=== PATIENT | female | born 1970 | race Caucasian/White ===

== ENCOUNTER → 2022-08-16 13:07 | Outpatient (BNVA) | payer OTHER, MEDICAID, SELFPAY | PROVIDERS: PCP Internal Medicine; Referring Provider Internal Medicine; Visit Provider Physician Assistant Surgical ==

== ENCOUNTER 2022-09-20 08:55 | Outpatient (AMB) | payer OTHER, MEDICAID, SELFPAY ==
--- NOTE | 2022-09-20 09:08 | MHC.OFFVISWM ---
Intake VS Expanded 09/20/22 09:09 Height 5 ft 4 in Weight 217 lb 9.6 oz BMI 37.3 BP 140/64 H Blood Pressure Location Lt brachial Blood Pressure Position Sitting Pulse 81 Pulse Source Pulse Oximeter Temp 97.0 F Temperature Source Temporal Artery Scan Pulse Oximetry 98 Oxygen Delivery Method Room Air Body Fat 84.2 Body Fat Percentage 38.7 Free Fat Mass 133.4 Muscle Mass 126.6 Visceral Mass 11.0 Water Mass 94.8 BMR 1,825 Intake Visit Reasons: (OV) [facility] SWL BMI 37.8 Heading Pinner Required: Yes Heading Pinner Name: office cmi Allergies No Known Allergies Allergy (Verified 09/20/22 09:09) Medication List - Last Reconciled 09/20/22 by LENNY Mullen aspirin 81 mg PO DAILY atorvastatin 20 mg PO DAILY dulaglutide (Trulicity) 0.75 mg subcut QWEEK empagliflozin (Jardiance) 25 mg PO DAILY fluticasone propionate 50 mcg/actuation 2 sprays intranasal DAILY insulin lispro protamin-lispro 100 unit/mL (75-25) (Humalog Mix 75-25 KwikPen) 50 units subcut BID lisinopril 20 mg PO DAILY loratadine (Allergy Relief (loratadine)) 10 mg PO DAILY metformin 1,000 mg PO BID paroxetine HCl 40 mg PO DAILY HPI HPI Comments History of Present Illness Details Pt is here to start [place] [facility] [place] [facility]. Her goal is to lose weight and achieve a healthy lifestyle as well as to improve, if not resolve, obesity related medical conditions, including HTN, DM, HLD. She reports first being concerned about her weight 2 years ago, highest weight to date was 226. Initial weight on presentation to [facility] [place] on 08/16/22 was 220 pounds with a BMI of 37.8. Current weight is 217.6 with a BMI of 37.4. She has tried multiple methods of weight loss including fad diets without permanent results. She lives with her family. She currently does not work. BS running 90-220. BP 130s/70s She wakes at:?5 am, and goes to bed at?10 pm. Dinner is at 5 pm. Breakfast: cereal corn flakes w 2 % milk or crackers, HB eggs AM snack: skip Lunch: skip PM snack: skip Dinner: chicken, rice, potato, veg After dinner: skip Other snacks: ice cream Liquids: 80 oz water, 20 oz coke soda daily, 12 oz apple juice Alcohol/marijuana/tobacco intake: none Exercise: none, could join a gym. GERD score: 6 XIANG score: 1 ESS score: 3 QOL score: 29 PFSH Surgical History Hx of cholecystectomy Hx of exploratory laparotomy Family History Mother Hypertension Arthritis Father Cirrhosis Social History Alcohol intake: current Alcohol intake frequency: does not drink Patient Tobacco Use Status: Never used Tobacco Review of Systems Const All systems reviewed & are unremarkable except as noted in HPI and below Physical Exam Vital Signs: Last Vital Signs Temp 97.0 F 09/20/22 09:09 Pulse 81 09/20/22 09:09 BP 140/64 H 09/20/22 09:09 Pulse Ox 98 09/20/22 09:09 Oxygen Delivery Method Room Air 09/20/22 09:09 BMI result Body Mass Index 37.3 Const General: cooperative, healthy appearing and no acute distress Orientation/consciousness: patient oriented x3 HEENT Head: Yes normal to inspection Ears: hearing grossly normal bilaterally General nose exam: Normal external nose present Face and sinus: Yes normal facial exam Eyes General: appearance normal, both eyes and all related structures Resp Effort & Inspection: normal respiratory effort Auscultation: clear to auscultation bilaterally Cardio Rate: regular rate Rhythm: regular rhythm Heart sounds: S1 normal heart sound present and S2 normal heart sound present GI Inspection: Yes normal to inspection, No distended and Yes obesity Palpation (GI): Soft to palpation, nontender and no guarding Auscultation: normal bowel sounds Skin General skin exam: no rashes or lesions noted Neuro General: patient oriented x3 Extrem General: No edema Psych Appearance: grossly normal Mental Status: mental status grossly normal Speech and movement: Normal speech and movement present Affect: normal affect Attitude: cooperative Assessment & Plan Assessment & Plan (1) Obesity (BMI 30-39.9): Code(s): E66.9 - Obesity, unspecified Plan: This is a?51 yo female who will start our SWL program to prepare for bariatric surgery.? Blood work, h pylori , CXR, ECG, Abd US and UGI have been ordered. She is being scheduled for RD and BH initial consultations. She will start SWL classes and watch the first three videos before her next appointment. ? Adequate sleep of 7-8 hours per night discussed, awakenign at 5 am and going to bed at 10 pm ? Purchase body composition analyzer scale (Aida velasquez or Min recommended) and check weight weekly. The best time to do this is first thing in the morning after going to the bathroom. 1. Nutritional counseling: Be sure to careful read the number of scoops per shake Start with 2 Premier Protein shakes ([employer], [employer], [employer]) First shake (1 scoop in 8 oz low fat unsweetened almond milk) at 6am-8am, Second shake (1/2 scoop in 8 oz unsweetened almond milk) at 10am-12pm 1 protein bar (Fulfil bars at [employer], [employer], or [employer]) at 2pm-4pm. Dinner at 5pm (8 forks of protein and 8 forks of salad/vegetables). Meal to include lean meat (beef, fish, pork, turkey, chicken), cooked vegetables or a salad with olive oil and/or fruits (berries, pears, apples, kiwi). Avoid salt, breads, potatoes, rice, pasta, desserts. [place] yogurt w fresh berries (strawberries, blueberries, raspberries, blackberries) at 7pm-8pm. Or a piece of fruit at this time such as an apple, pear, kiwi. Try to drink 64 oz of water daily and avoid soda and juices. ?2. Each shake would be drunk slowly, like coffee in a period of 2 hours. ?3. Cut each bar in 4 pieces and eat each piece in 30 min ?to make each bar last 2 hours. ?4. I emphasized the importance of measuring accurately the food portion and measure it carefully when serving the food on the plate ?5. The meal portions include 8 full-size forks of meat and 8 full-size forks of salad. You always eat the meat portion but you can replace up to half of the forks of salad/vegetables with rice, potatoes or pasta, or a fruit ?if you like. The less you do it the better weight loss will be. ?6. One full-size fork is what can be scooped on the fork without falling aside and not what can be bit with the fork. Use regular forks like those you find in a typical restaurant. ?7.? Please send me weight measurements as soon as possible and then once a week. Always include your diet and exercise plan. Alternatively come weekly at the office for weight checks and send me the measurements. ?8. Exercise counseling: Begin by watching a stretching for beginners video. Start slowly and begin to stretch your muscles. You should do this before and after each exercise session to prevent injury. Please join [employer] [facility] gym near your home. Ask the furniture manager or one of the trainers how to use the machines if you are unfamiliar with them. Start elliptical with a resistance of 2. Increase resistance by 1 every 3 min to your most comfortable resistance with a max resistance of 8. Reduce the resistance by 1 every 3 minutes back down to 2 and repeat cycles for 300 calories. Alternatively, start treadmill with a speed of 3.0 and incline of 0, increasing incline by 1 every 3 minutes to the highest comfortable level (max 6 for now) then decrease in the same fashion. Repeat process to a goal of 300 calories. Goal of 2000 calories burned or more weekly. You may also consider use of the stationary bike. The easiest would be to chose the fat-burn or interval training program on the machine and do this until you reach the 300 calorie goal. Alternatively, you can manually adjust the resistance in a similar fashion as mentioned above, (resistance of 2-8 with a goal speed of 12 mph). Tracking calories is essential. 9. Alternatively start walking outside daily, tracking calories with a goal of 300 calories per day, daily. You can download the [employer] which can track your time, distance and calories while walking outside. You press start in the angelo when you start and then stop when you are finished. 10.? It is important to communicate weekly with your weight and if you are having any problems with the plans. 11. Please get labs, EKG and chest X-Ray within 1 week. 12. Discussed and answered all questions regarding?obtained consent to participate in the [facility]?Registry. 13. Please follow the diet plan exactly, without any change. If you do not like something about the plan or you feel hungry, you need to communicate with me so I can help you revise the plan. You should not change the plan yourself. Text me at [phone] 14. Goal is to lose at least 12 pounds in the first month 15. Goal is to lose 10% of your weight before surgery, which is about 22 lbs. Ultimate weight goal: 200 lbs before surgery Patient is morbidly obese and is not considered stable at this time.?I spent a total of 70 minutes reviewing/updating records, examining the patient and counseling the patient on weight management as detailed above. Orders: Orders Vitamin B12 and Folate Today E11.9 - Type 2 diabetes mellitus without complications, E66.9 - Obesity, unspecified, E78.00 - Pure hypercholesterolemia, unspecified, I10 - Essential (primary) hypertension Comprehensive Met. Panel Today E11.9 - Type 2 diabetes mellitus without complications, E66.9 - Obesity, unspecified, E78.00 - Pure hypercholesterolemia, unspecified, I10 - Essential (primary) hypertension C Reactive Protein Today E11.9 - Type 2 diabetes mellitus without complications, E66.9 - Obesity, unspecified, E78.00 - Pure hypercholesterolemia, unspecified, I10 - Essential (primary) hypertension Ferritin Today E11.9 - Type 2 diabetes mellitus without complications, E66.9 - Obesity, unspecified, E78.00 - Pure hypercholesterolemia, unspecified, I10 - Essential (primary) hypertension Hemoglobin A1c Today E11.9 - Type 2 diabetes mellitus without complications, E66.9 - Obesity, unspecified, E78.00 - Pure hypercholesterolemia, unspecified, I10 - Essential (primary) hypertension Insulin Today E11.9 - Type 2 diabetes mellitus without complications, E66.9 - Obesity, unspecified, E78.00 - Pure hypercholesterolemia, unspecified, I10 - Essential (primary) hypertension IRON PROFILE Today E11.9 - Type 2 diabetes mellitus without complications, E66.9 - Obesity, unspecified, E78.00 - Pure hypercholesterolemia, unspecified, I10 - Essential (primary) hypertension Lipid Panel Today E11.9 - Type 2 diabetes mellitus without complications, E66.9 - Obesity, unspecified, E78.00 - Pure hypercholesterolemia, unspecified, I10 - Essential (primary) hypertension PTHI Today E11.9 - Type 2 diabetes mellitus without complications, E66.9 - Obesity, unspecified, E78.00 - Pure hypercholesterolemia, unspecified, I10 - Essential (primary) hypertension TSH reflex Free T4 Today E11.9 - Type 2 diabetes mellitus without complications, E66.9 - Obesity, unspecified, E78.00 - Pure hypercholesterolemia, unspecified, I10 - Essential (primary) hypertension Vitamin A Today E11.9 - Type 2 diabetes mellitus without complications, E66.9 - Obesity, unspecified, E78.00 - Pure hypercholesterolemia, unspecified, I10 - Essential (primary) hypertension Vitamin B1 Today E11.9 - Type 2 diabetes mellitus without complications, E66.9 - Obesity, unspecified, E78.00 - Pure hypercholesterolemia, unspecified, I10 - Essential (primary) hypertension Vitamin D 25-OH Total Today E11.9 - Type 2 diabetes mellitus without complications, E66.9 - Obesity, unspecified, E78.00 - Pure hypercholesterolemia, unspecified, I10 - Essential (primary) hypertension Zinc Today E11.9 - Type 2 diabetes mellitus without complications, E66.9 - Obesity, unspecified, E78.00 - Pure hypercholesterolemia, unspecified, I10 - Essential (primary) hypertension ECG 12 lead EKG Today E11.9 - Type 2 diabetes mellitus without complications, E66.9 - Obesity, unspecified, E78.00 - Pure hypercholesterolemia, unspecified, I10 - Essential (primary) hypertension FL upper GI w air Today E11.9 - Type 2 diabetes mellitus without complications, E66.9 - Obesity, unspecified, E78.00 - Pure hypercholesterolemia, unspecified, I10 - Essential (primary) hypertension Complete Blood Count Auto Diff Today E11.9 - Type 2 diabetes mellitus without complications, E66.9 - Obesity, unspecified, E78.00 - Pure hypercholesterolemia, unspecified, I10 - Essential (primary) hypertension H Pylori Breath Test Today E11.9 - Type 2 diabetes mellitus without complications, E66.9 - Obesity, unspecified, E78.00 - Pure hypercholesterolemia, unspecified, I10 - Essential (primary) hypertension US abdomen comp w elastography Today E11.9 - Type 2 diabetes mellitus without complications, E66.9 - Obesity, unspecified, E78.00 - Pure hypercholesterolemia, unspecified, I10 - Essential (primary) hypertension XR chest 2V Today E11.9 - Type 2 diabetes mellitus without complications, E66.9 - Obesity, unspecified, E78.00 - Pure hypercholesterolemia, unspecified, I10 - Essential (primary) hypertension Referrals Behavioral Health Referral E11.9 - Type 2 diabetes mellitus without complications, E66.9 - Obesity, unspecified, E78.00 - Pure hypercholesterolemia, unspecified, I10 - Essential (primary) hypertension Nutrition/Dietitian Referral E11.9 - Type 2 diabetes mellitus without complications, E66.9 - Obesity, unspecified, E78.00 - Pure hypercholesterolemia, unspecified, I10 - Essential (primary) hypertension Coding Level of Care Code New Pt Level 5 (55558) Diagnoses Obesity (BMI 30-39.9) E66.9 Time Spent (min) 70
[2022-09-20 09:09] VITALS: BP 140/64; PULSE 81; TEMP 36.1; O2SAT 98; BMI 37.3
== END 2022-09-20 09:59 | disposition home or self-care (01) ==
PROVIDERS: PCP Internal Medicine; Visit Provider Physician Assistant Surgical
DX: E66.9 Obesity, unspecified (principal); Z68.37 Body mass index [BMI] 37.0-37.9, adult
CPT/HCPCS: 99205

== ENCOUNTER → 2022-09-20 08:55 | Outpatient (BNVA) | payer OTHER, MEDICAID, SELFPAY | PROVIDERS: PCP Internal Medicine; Visit Provider Physician Assistant Surgical ==

== ENCOUNTER 2022-09-30 07:09 | Outpatient (REF) | payer MEDICARE, SELFPAY ==
--- NOTE | ~2022-09-30 | XR_ITS ---
EXAMINATION: XR CHEST CLINICAL INFORMATION: Obesity. COMPARISON: None available. TECHNIQUE: 2 views of the chest were obtained. FINDINGS: The lungs are well expanded. No focal consolidation. No pleural effusion. Cardiac silhouette is within normal limits. There is possible deformity of the lateral right seventh rib. XR/XR chest 2V IMPRESSION: No acute abnormality.
--- NOTE | 2022-09-30 07:19 | ECG_ITS ---
Test Reason : E66.9 Blood Pressure : / mmHG Vent. Rate : 070 BPM Atrial Rate : 070 BPM P-R Int : 152 ms QRS Dur : 126 ms QT Int : 444 ms P-R-T Axes : 044 -43 021 degrees QTc Int : 479 ms Normal sinus rhythm Left axis deviation Right bundle branch block Abnormal ECG No previous ECGs available Referred By: Bradford Kearney Electronically Signed By:Antelmo Dorman
[2022-09-30 08:48] LABS: Basophils Percent Auto 0.5 % (0-2); Eosinophils Absolute Auto 0.3 X10*3/uL (0.0-0.4); Eosinophils Percent Auto 4.5 % (0-4); Hemoglobin 13.4 g/dl (12.0-16.0); Imm Gran Abs Auto 0.03 X10*3/uL (0.00-0.03); Imm Gran Pct Auto 0.5 % (0.0-0.4); Lymphocytes Percent Auto 36.6 % (20-40); MANUAL DIFF FLAG NO; Mean Corpuscular HGB Conc 33.5 g/dl (31.0-35.0); Mean Corpuscular Hemoglobin 29.7 pg (27.0-33.0); Mean Corpuscular Volume 88.7 fL (80.0-98.0); Mean Platelet Volume 10.9 fL (9.4-12.3); Monocytes Absolute Auto 0.4 X10*3/uL (0.1-1.2); Monocytes Percent Auto 6.8 % (2-11); Neutrophils Absolute Auto 2.8 x10*3/uL (2.0-8.3); Neutrophils Percent Auto 51.1 % (45-73); Platelet Count 278 X10*3/uL (160-400); Red Blood Count 4.51 X10*6/uL (4.20-5.50); Red Cell Distribution Width 12.3 % (11.0-16.0); White Blood Count 5.6 X10*3/uL (4.8-10.8)
[2022-09-30 08:57] LABS: Estimated Average Glucose 243 mg/dL; Hemoglobin A1c % 10.1 %
[2022-09-30 09:35] LABS: Alanine Aminotransferase 40 U/L (0-31); Albumin Level 4.9 g/dL (3.5-5.0); Alkaline Phosphatase 64 U/L (39-117); Anion Gap 17 (12-20); Aspartate Amino Transferase 37 U/L (5-31); Bilirubin Total 0.6 mg/dL (0.0-1.0); Blood Urea Nitrogen 23 mg/dL (9-16); C Reactive Protein 0.29 mg/dL (< or = 0.50); Calcium 10.2 mg/dL (8.4-10.2); Carbon Dioxide 26 mmol/L (22-29); Chloride 99 mmol/L (96-108); Cholesterol 132 mg/dL; Estimated Glomerular Filt Rate > 60; Glucose Random 163 mg/dL (60-115); HDL Cholesterol 37 mg/dL; Iron 68 mcg/dL (30-160); LDL Cholesterol Calculated 48 mg/dl; Percent Iron Saturation 17 % (15-50); Potassium 3.8 mmol/L (3.3-5.1); Sodium 138 mmol/L (135-145); Total Iron Binding Capacity 393 mcg/dL (228-428); Total Protein 7.9 g/dL (6.5-8.0); Triglycerides 238 mg/dL; Unsaturated Iron Binding 325 ug/dL
[2022-09-30 09:58] LABS: Ferritin 38 ng/mL (10-250); Folate 14.6 ng/mL (> or = 4.0); Insulin 31 uU/mL (2-29); Vitamin B12 430 pg/mL (200-900); Vitamin D 25-OH Total 30.4 ng/mL (>30)
[2022-10-03 14:58] LABS: PTHI 33 pg/mL (16-77)
[2022-10-05 02:33] LABS: Zinc 93 mcg/dL (60-130)
[2022-10-06 03:28] LABS: Vitamin A 80 mcg/dL (38-98)
[2022-10-06 14:54] LABS: Vitamin B1 8 nmol/L (8-30)
== END 2022-09-30 07:10 | disposition home or self-care (01) ==
LOC: HO.XRAY 07:09
PROVIDERS: PCP Internal Medicine; Visit Provider Physician Assistant Surgical
DX: E11.9 Type 2 diabetes mellitus without complications (principal); E66.9 Obesity, unspecified; E78.00 Pure hypercholesterolemia, unspecified; I10 Essential (primary) hypertension
CPT/HCPCS: 36415; 71046; 80053; 80061; 82306; 82607; 82728; 82746; 83036; 83525; 83540; 83970; 84425; 84443; 84590; 84630; 85025; 86140; 93005

== ENCOUNTER → 2022-09-30 07:19 | Outpatient (BNV) | payer MEDICARE, SELFPAY | PROVIDERS: PCP Internal Medicine; Visit Provider Internal Medicine Cardiovascular Disease | DX: I45.10 Unspecified right bundle-branch block (principal); R94.31 Abnormal electrocardiogram [ECG] [EKG] | CPT/HCPCS: 93010 ==

== ENCOUNTER 2022-10-06 09:51 | Outpatient (REF) | payer OTHER, MEDICAID, SELFPAY ==
[2022-10-09 14:56] LABS: H Pylori Breath Test Negative (Negative)
== END 2022-10-06 09:52 | disposition home or self-care (01) ==
LOC: HO.LNP 09:51
PROVIDERS: PCP Internal Medicine; Visit Provider Physician Assistant Surgical
DX: E11.9 Type 2 diabetes mellitus without complications (principal); E66.9 Obesity, unspecified
CPT/HCPCS: 83013

== ENCOUNTER 2022-10-14 10:00 | Outpatient (AMB) | payer OTHER, MEDICAID, SELFPAY ==
--- NOTE | 2022-10-14 10:10 | A.OFFWM_ITS ---
Intake Intake Visit Reasons: VIDEO BH Intake Allergies No Known Allergies Allergy (Verified 10/19/22 09:23) PFSH Surgical History Hx of cholecystectomy Hx of exploratory laparotomy Family History Mother Hypertension Arthritis Father Cirrhosis Social History Alcohol intake: current Alcohol intake frequency: does not drink Patient Tobacco Use Status: Never used Tobacco Behavioral Health Assessment Weight Management Therapy Therapy Notes Details PT is a 52 year old , Luxembourger-Speaking Female, who presents for Behavioral Health assessment as part of surgical weight-loss program. PT reports she currently receives MH treatment on a regular basis due to Depression, anxiety and OCD. PT denies any past/recent concerns re: safety factors such as SI, self-harm and/or other harm. PHQ-9 scores were high however, per assessment and her statements she doesn't appear to be dealing with a current depressive episode. BES scores indicate minimal risk for Binge Eating behavior. However PT will be seen again due to alleged concerns with emotional eating. Presenting Concerns Referral Source WMP Provider. PT sees LENNY Andrade. Reason for referral Completion of behavioral health assessment as part of process for weight-loss surgery. Precipitating Event Obesity, HTN, Diabetes. Living Situation Current Living Situation Rent At risk of losing current housing? No Satisfied with current living situation? Yes Comments PT lives with her 25 year old niece and 20 year old nephew. Food/Weight/Diet Expectations of change The initial goal is to lose at least 12 pounds in the first month Also, another goal is to lose 10% of your weight before surgery, which is about 22 lbs. Ultimate weight goal: 200 lbs. before surgery. PT wants to be at her healthy weight. One of her personal goals is not to have to take as much medication. History/Relationship with food -PT states she thinks her issue is relat ed to late snacking, as usually by the end of the day she used to eat ice cream or have snacks while watching tv. -Before starting the program she only weaver d 2 meals, had late breakfast around 10 am, and then dinner around 5 pm. Examples of past breakfast: ham/eggs with soda crackers or bread and coffee. Examples of past dinners: Rice, beans, protein (pork, fish, chicken), and green salad. sometimes she had multiple carbs in the same meal. She used to drink a lot of coffee or Coke. - During the pandemic she suffered from emotional eating due to isolation. History/Relationship with weight Around 1998 she was 226 lbs. Then she was able to lose 70 Lbs. with diet and medication with a doctor. She was able to be around 150-160 lbs. for a couple of years. Then around 2006, she started to gain weight but later in 2011 she lost 25 Lbs. due to health issues and family stress, after that she gained weight slowly but weight got out of control during the covid-19 pandemic in 2020. History/Relationship with dieting Weight management program around 2000 in [place], with medication and diet. She hasn't engaged in diets. Recently per CP advise she started WMP at this facility. Binge Eating Do you frequently eat large amounts of food in short periods of time, not feeling physically hungry? No Do you feel out of control when you eat a large amount of food in a short period of time? No Do you eat large amounts of food rapidly and typically alone? No Night Eating Do you wake up at least once during the night to eat? No If you wake up in the night, do you find that it is necessary to eat something in order to fall back asleep? No Do you have little or no appetite in the morning and feel very hungry in the evening, often overeating between dinner and when you go to bed? Yes Social History Family history and relationship Pt is Sigle. She was for about 4 years in the . PT has no kids. Mother in 2011, father in 2003. She has 3 siblings. They all are in [place] but have a very close relationship. 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 Developmental history and status None. Social support Niece and nephew. She's attending the gym with nephew. Community support Providers. Buddhist/Spirituality Pt is Yazdanism. Currently not attending rastafari around her as she hasn't find a local danish-chruch, but she continues attending services on Sundays via [employer] [facility]. Cultural/Ethnic information PT is from [place]. Moved to [place] 4 years ago. Pt is Luxembourger-speaking only. Legal Involvement and History Current or historical involvement with the legal system? 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 Preferred learning style Visual Currently enrolled in educational program? Yes (Romanian at [employer] Interested in further educational program? No Educational Interests/Skills After finishing ESL classes she would like to start a clothing business. 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 No Meaningful activities Cooking, reading the bible, watch movies, window shopping. Financial Situation Describe current financial situation Comfortable Financial assistance? Food [employer] and [employer]SI Service Service? No Mental Health and Addiction Treatment Current/Past substance abuse? No Current/Past addictive behavior concerns? No Psychiatric history PT attends counseling on a regular basis. Diagnosed with Major Depression, anxiety and OCD. Disabled in [place] due to Mental health and had to be out of work. Medical and Physical Health Summary Additional Medical History not covered in history None reported. Sexual History concerns None reported Physical exam in the last year? Yes Medications Is the patient compliant with medications? Yes Does the patient have Stringer Guardian in place? Not applicable Does the patient use complimentary health approaches? No Trauma/Abuse History History of trauma? No Questionnaires PHQ-9 Over the last 2 weeks, how often have you been bothered by any of the following problems? 1. Little interest or pleasure in doing things: several days 2. Feeling down, depressed, or hopeless: several days 3. Trouble falling or staying asleep, or sleeping too much: more than half the days 4. Feeling tired or having little energy: more than half the days 5. Poor appetite or overeating: several days 6. Feeling bad about yourself - or that you are a failure or have let yourself or your family down: not at all 7. Trouble concentrating on things, such as reading the newspaper or watching television: not at all 8. Moving or speaking so slowly that other people could have noticed. Or the opposite - being so fidgety or restless that you have been moving around a lot more than usual: more than half the days 9. Thoughts that you would be better off or of hurting yourself in some way: not at all Total score: 9 Depression Screening Interpretation: Positive (Mild Symptoms.) Depression Screening Follow-up: In treatment and Follow-up Visit Requested [id number] - PHQ-9 Billing: Yes Source: Developed by Drs. Sean Rodriguez, Eloise Moran, Ruddy Daly and colleagues, with an educational doreen from [employer]. Binge Eating Scale Group 1 A. I don't feel self-conscious about my wt. or body size when I'm with others. B. I feel concerned about how I look to others, but it normally does not make me fell disappointed with myself C. I do get self-conscious about my appearance and wt. which makes me feel disappointed in myself. D. I feel very self-conscious about my wt. and frequently I feel intense shame and disgust for myself. I try to avoid social contacts because of my self- consciousness. Response Group 1: B Group 2 A. I don't have any difficulty eating slowly in the proper manner. B. Although I seem to gobble down foods, I don't end up feeling stuffed because of eating to much. C. At times, I tend to eat quickly and then, I feel uncomfortably full afterwards. D. I have the habit of bolting down my food, without really chewing it. When this happens I usually feel uncomfortably stuffed because I've eaten to much. Response Group 2: A Group 3 A. I feel capable to control my eating urges when I want to. B. I feel like I have failed to control my eating more than the average person. C. I feel utterly helpless when it comes to feeling in control of my eating urges. D. Because I feel so helpless about controlling my eating I have become very desperate about trying to get control. Response Group 3: B Group 4 A. I don't have the habit of eating when I'm bored. B. I sometimes eat when I'm bored, but often I'm able to get busy and get my mind off food. C. I have a regular habit of eating when I'm bored, but occasionally, I can use some other activity to get my mind off eating. D. I have a strong habit of eating when I'm bored. Nothing seems to help me breath the habit. Response Group 4: C Group 5 A. I'm usually physically hungry when I eat something. B. Occasionally, I eat something on impulse even though I really am not hungry. C. I have the regular habit of eating foods, that I might not really enjoy, to satisfy a hungry feeling even though physically, I don't need the food. D. Although I'm not physically hungry, I get a hungry feeling in my mouth that only seems to be satisfied when I eat a food, like sandwich, that fills my mouth. Sometimes, when I eat the food to satisfy my mouth hunger, I then spit the food out so I won't gain weight. Response Group 5: A Group 6 A. I don't feel any guilt or self-hate after I overeat. B. After I overeat, occasionally I feel guilt or self-hate. C. Almost all the time I experience strong guilt or self-hate after I overeat. Response Group 6: B Group 7 A. I don't lose total control of my eating when dieting even after periods when I overeat. B. Sometimes when I eat a forbidden food on a diet, I feel like I blew it and eat even more. C. Frequently, I have the habit of saying to myself, I've blown it now, why not go all the way, when I overeat on a diet. When that happens I eat more. D. I have a regular habit of starting a strict diets for myself but I break the diets by going on an eating binge. My life seems to be either a feast or famine. Response Group 7: A Group 8 A. I rarely eat so much food that I feel uncomfortably stuffed afterwards. B. Usually about once a month, I each such a quantity of food, I end up feeling very stuffed. C. I have regular periods during the month when I eat large amounts of food, either at mealtime or at snacks. D. I eat so much food that I regularly feel quite uncomfortable after eating and sometimes a bit nauseous. Response Group 8: C Group 9 A. My level of calorie intake does not go up very high or go down very low on a regular basis. B. Sometimes after I overeat, I will try to reduce my caloric intake to almost nothing to compensate for the excess calories I've eaten. C. I have a regular habit of overeating during the night. It seems that my routine is not to be hungry in the morning but overeat in the evening. D. In my adult years, I have had week-long periods where I practically starve myself. This follows periods when I overeat. It seems I live a life of either feast or famine. Response Group 9: C Group 10 A. I usually am able to stop eating when I want to. I know when enough is enough. B. Every so often, I experience a compulsion to eat which I can't seem to control. C. Frequently, I experience strong urges to eat which I seem unable to control, but at other times I can control my eating urges. D. I feel incapable of controlling urges to eat. I have a fear of not being able to stop eating voluntarily. Response Group 10: C Group 11 A. I don't have any problem stopping eating when I feel full. B. I usually can stop eating when I feel full but occasionally overeat leaving me feeling uncomfortably stuffed. C. I have a problem stopping eating once I start and usually I feel uncomfortably stuffed after I eat a meal. D. Because I have a problem not being able to stop eating when I want, I sometimes have to induce vomiting to relieve my stuffed feeling. Response Group 11: A Group 12 A. I seem to eat just as much when I'm with others, Family social gatherings as when I'm by myself. B. Sometimes, when I'm with other persons, I don't eat as much as I want to eat because I'm self-conscious about my eating. C. Frequently, I eat only a small amount of food when others are present, because I'm very embarrassed about my eating. D. I feel so ashamed about overeating that I pick times to overeat when I know no one will see me. I feel like a closet eater. Response Group 12: C Group 13 A. I eat three meals a day with only an occasional between meal snack. B. I eat 3 meals a day, but I also normally snack between meals. C. When I am snacking heavily, I get in the habit of skipping regular meals. D. There are regular periods when I seem to be continually eating, with no planned meals. Response Group 13: C Group 14 A. I don't think much about trying to control unwanted eating urges. B. At least some of the time, I feel my thoughts are pre-occupied with trying to control my eating urges. C. I feel that frequently I spend much time thinking about how much I ate or about trying not to eat anymore. D. It seems to me that most of my waking hours are pre-occupied by thoughts about eating or not eating. I feel like I'm constantly struggling not to eat. Response Group 14: A Group 15 A. I don't think about food a great deal. B. I have strong craving for food but they last only for brief periods of time. C. I have days when I can't seem to think about anything else but food. D. Most of my days seem to be pre-occupied with thoughts about food. I feel like I live to eat. Response Group 15: B Group 16 A. I usually know whether or not I'm physically hungry. I take the right portion of food to satisfy me. B. Occasionally, I feel uncertain about knowing whether or not I'm physically hungry. A these times it's hard to know how much food I should take to satisfy me. C. Even though I might know how many calories I should eat, I don't have any idea what is a normal amount of food for me. Response Group 16: B Binge Eating Score: 17 Score less than 17 Minimal Risk Score between 18-26 Moderate Risk Score between 27-46 High Risk Assessment & Plan Assessment & Plan (1) Depression: Code(s): F32.A - Depression, unspecified Qualifiers: Depression Type: unspecified Qualified Code(s): F32.A - Depression, unspecified (2) Anxiety: Code(s): F41.9 - Anxiety disorder, unspecified Plan Not cleared today. PHQ-9 will be repeated next angelo. We will further explore emotional eating and patient will be provided with strategies to manage Sx that trigger emotional/stress eating. Will f/up in 4 weeks. Telehealth Telehealth Location of provider rendering services: practice address Location of patient: address on file Patient Identification confirmed using: Name, : Yes Telehealth method: video Patient verbally consented to treatment: Yes Patient verbally consented to billing insurance company: Yes Patient informed of any privacy concerns related to visit: Yes Minutes spent on Phone/Video with Pt.: 60 Coding Level of Care Code New Pt Tele Psy Diag Eval (58688) Patient Type New Diagnoses Depression, unspecified depression type F32.A Depression Type: unspecified Anxiety F41.9 Time Spent (min) 60
== END 2022-10-14 13:55 | disposition home or self-care (01) ==
LOC: HO.HBST 10:47
PROVIDERS: PCP Internal Medicine; Visit Provider Counselor Mental Health
DX: F32.A Depression, unspecified (principal); F41.9 Anxiety disorder, unspecified
CPT/HCPCS: 90791

== ENCOUNTER → 2022-10-14 10:00 | Outpatient (BNVA) | payer OTHER, MEDICAID, SELFPAY | PROVIDERS: PCP Internal Medicine; Visit Provider Counselor Mental Health ==

== ENCOUNTER 2022-10-19 09:17 | Outpatient (AMB) | payer OTHER, MEDICAID, SELFPAY ==
--- NOTE | 2022-10-19 09:20 | A.OFFVIS_ITS ---
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 Outside Required: Yes Display Designer Outside Name: office cmi Allergies No Known Allergies Allergy (Verified 10/19/22 09:23) Medication List - Last Reconciled 10/19/22 by LENNY Mullen aspirin 81 mg PO DAILY atorvastatin 20 mg PO DAILY cyanocobalamin (vitamin B-12) 250 mcg PO DAILY dulaglutide (Trulicity) 0.75 mg subcut QWEEK fluticasone propionate 50 mcg/actuation 2 sprays intranasal DAILY insulin lispro protamin-lispro 100 unit/mL (75-25) (Humalog Mix 75-25 KwikPen) 50 units subcut BID lisinopril 20 mg PO DAILY loratadine (Allergy Relief (loratadine)) 10 mg PO DAILY paroxetine HCl 40 mg PO DAILY HPI HPI Comments History of Present Illness Details The patient is a pleasant 51 year old female who returns to the clinic for pre-operative surgical weight loss management. They were last seen in the office on 09/20/22, recorded weight at that time was 217.6 pounds, with a BMI of 37.3. Today's weight is 207.8 pounds and BMI is 35.7. There has been a weight loss of 12.2 pounds since initiating the surgical weight loss program on 08/16/22 with a total body weight loss of 5.5 %. Pre op work up completed as follows: SWL classes:? BH appts: 10/14/22 ? ? RD appts: 10/25/22 Labs: 09/30/22-A1C:10.1, B12:430 H. pylori: 10/06/22-neg CXR: 09/30/22-nad EK09/30/22-Left axis deviation, RBBB. 10/03/22 stress test ordered ABD U/S: UGI: The patient reports BS running 69-148.She stopped Jardiance on her own due to increased urination and hypoglycemia. She also adjusted her insulin to 55 units in AM and 40 units in PM. She feels she gets overnight hypoglycemia with symptoms of goosebumps and shakiness with BS 69. Tolerating meal plan and reports some hunger between 4-5 pm. Current meal plan includes: 2 Premier Protein shakes First shake (1 scoop in 8 oz low fat unsweetened almond milk) at 6am-8am, Second shake (1/2 scoop in 8 oz unsweetened almond milk) at 10am-12pm 1 protein bar (Fulfil bars at [employer], [employer], or [employer]) at 2pm-4pm. Dinner at 5pm (8 forks of protein and 8 forks of salad/vegetables). Omani yogurt w fresh berries (strawberries, blueberries, raspberries, blackberries) at 7pm-8pm. Or a piece of fruit at this time such as an apple, pear, kiwi. Drinking 80-96 oz water Current exercise plan includes: treadmill 4 days per week 200 calories per session PFSH Surgical History Hx of cholecystectomy Hx of exploratory laparotomy Family History Mother Hypertension Arthritis Father Cirrhosis Social History Alcohol intake: current Alcohol intake frequency: does not drink Patient Tobacco Use Status: Never used Tobacco Physical Exam Const General: healthy appearing and no acute distress Resp Effort & Inspection: normal respiratory effort Auscultation: clear to auscultation bilaterally Cardio Rate: regular rate Rhythm: regular rhythm GI Auscultation: normal bowel sounds Extrem General: Yes normal to inspection Assessment & Plan Assessment & Plan (1) Obesity (BMI 30-39.9): Code(s): E66.9 - Obesity, unspecified Plan: change meal plan to exclude yogurt at night as she doesn't like it. 3 Premier Protein shakes First shake (1 scoop in 8 oz low fat unsweetened almond milk) at 6am-8am, Second shake (1/2 scoop in 8 oz unsweetened almond milk) at 10am-12pm 1 protein bar (Fulfil bars at [employer], [facility], or [employer]) at 2pm-4pm. Dinner at 5pm (8 forks of protein and 8 forks of salad/vegetables). 1/2 scoop in last [id number] Increase exercise to 300 calories and increase days to 5 (2) Diabetes: Code(s): E11.9 - Type 2 diabetes mellitus without complications Plan: stop metformin decrease insulin to 40 am and 20 pm check BS text me with results (3) Abnormal EKG: Code(s): R94.31 - Abnormal electrocardiogram [ECG] [EKG] Plan: Nuc stress test ordered Coding Level of Care Code Est Pt Level 4 (56901) Diagnoses Obesity (BMI 30-39.9) E66.9 Diabetes E11.9 Abnormal EKG R94.31 Time Spent (min) 40
[2022-10-19 09:26] VITALS: BP 125/60; PULSE 77; TEMP 36.1; O2SAT 96; BMI 35.7
== END 2022-10-19 09:58 | disposition home or self-care (01) ==
PROVIDERS: PCP Internal Medicine; Visit Provider Physician Assistant Surgical
DX: E66.9 Obesity, unspecified (principal); E11.9 Type 2 diabetes mellitus without complications; R94.31 Abnormal electrocardiogram [ECG] [EKG]
CPT/HCPCS: 99214

== ENCOUNTER → 2022-10-19 09:17 | Outpatient (BNVA) | payer OTHER, MEDICAID, SELFPAY | PROVIDERS: PCP Internal Medicine; Visit Provider Physician Assistant Surgical ==

== ENCOUNTER → 2022-10-25 09:31 | Outpatient (BNVA) | payer OTHER, MEDICAID, SELFPAY | PROVIDERS: PCP Internal Medicine; Visit Provider Dietitian, Registered | DX: Z01.818 Encounter for other preprocedural examination (principal); Z90.49 Acquired absence of other specified parts of digestive tract; Z71.3 Dietary counseling and surveillance | CPT/HCPCS: 97802 ==

== ENCOUNTER 2022-12-05 09:00 | Outpatient (AMB) | payer MEDICARE, SELFPAY ==
--- NOTE | 2022-12-05 09:37 | MHC.WMTHER ---
Intake Intake Visit Reasons: VIDEO F/U Allergies No Known Allergies Allergy (Verified 10/19/22 09:23) PFSH Surgical History Hx of cholecystectomy Hx of exploratory laparotomy Family History Mother Hypertension Arthritis Father Cirrhosis Social History Alcohol intake: current Alcohol intake frequency: does not drink Patient Tobacco Use Status: Never used Tobacco Behavioral Health Assessment Weight Management Therapy Therapy Notes Details PT is a 52 year old , French-Speaking Female, who presents for a follow up after having intake on 10/14/22. PT presents feeling confused and with mixed feelings about moving forward with bariatric surgery. INTERVENTIONS: Processed feelings, validated and normalized doubts and fears, answered all questions pt had. RESPONSE: PT was sentive but responded well to intervention. Seemed calmed by end of session and [facility] and to manage emotional challenges and anxiety triggered by weight-loss journey. Plan: F/up for support as part of surgucal weight loss program. Presenting Concerns Referral Source P Provider. PT sees LENNY Andrade. Reason for referral Completion of behavioral health assessment as part of process for weight-loss surgery. Precipitating Event Obesity, HTN, Diabetes. Living Situation Current Living Situation Rent At risk of losing current housing? No Satisfied with current living situation? Yes Comments PT lives with her 25 year old niece and 20 year old nephew. Food/Weight/Diet Expectations of change The initial goal is to lose at least 12 pounds in the first month Also, another goal is to lose 10% of your weight before surgery, which is about 22 lbs. Ultimate weight goal: 200 lbs. before surgery. PT wants to be at her healthy weight. One of her personal goals is not to have to take as much medication. History/Relationship with food -PT states she thinks her issue is related to late snacking, as usually by the end of the day she used to eat ice cream or have snacks while watching tv. -Before starting the program she only had 2 meals, had late breakfast around 10 am, and then dinner around 5 pm. Examples of past breakfast: ham/eggs with soda crackers or bread and coffee. Examples of past dinners: Rice, beans, protein (pork, fish, chicken), and green salad. sometimes she had multiple carbs in the same meal. She used to drink a lot of coffee or Coke. - During the pandemic she suffered from emotional eating due to isolation. History/Relationship with weight Around 1998 she was 226 lbs. Then she was able to lose 70 Lbs. with diet and medication with a doctor. She was able to be around 150-160 lbs. for a couple of years. Then around 2006, she started to gain weight but later in 2011 she lost 25 Lbs. due to health issues and family stress, after that she gained weight slowly but weight got out of control during the covid-19 pandemic in 2019. History/Relationship with dieting Weight management program around 2000 in [place], with medication and diet. She hasn't engaged in diets. Recently per CP advise she started WMP at this facility. Binge Eating Do you frequently eat large amounts of food in short periods of time, not feeling physically hungry? No Do you feel out of control when you eat a large amount of food in a short period of time? No Do you eat large amounts of food rapidly and typically alone? No Night Eating Do you wake up at least once during the night to eat? No If you wake up in the night, do you find that it is necessary to eat something in order to fall back asleep? No Do you have little or no appetite in the morning and feel very hungry in the evening, often overeating between dinner and when you go to bed? Yes Social History Family history and relationship Pt is Sig[place]. She was for about 4 years in the . PT has no kids. Mother in 2011, father in 2003. She has 3 siblings. They all are in [place] but have a very close relationship. 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 Developmental history and status None. Social support Niece and nephew. She's attending the gym with nephew. Community support Providers. Mandaeism/Spirituality Pt is Hinduism. Currently not attending mu-ism around her as she hasn't find a local sami-chruch, but she continues attending services on Sundays via [email or web address]. Cultural/Ethnic information PT is from [place]. Moved to [place] 4 years ago. Pt is French-speaking only. Legal Involvement and History Current or historical involvement with the legal system? None Education Highest grade completed 12th Grade, obtained HS. 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 Preferred learning style Visual Currently enrolled in educational program? Yes (Iranian at [employer].) Interested in further educational program? No Educational Interests/Skills After finishing ESL classes she would like to start a clothing business. 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 No Meaningful activities Cooking, reading the bible, watch movies, window shopping. Financial Situation Describe current financial situation Comfortable Financial assistance? Food [place] and [employer]SI Service Service? No Mental Health and Addiction Treatment Current/Past substance abuse? No Current/Past addictive behavior concerns? No Psychiatric history PT attends counseling on a regular basis. Diagnosed with Major Depression, anxiety and OCD. Disabled in [place] due to Mental health and had to be out of work. Medical and Physical Health Summary Additional Medical History not covered in history None reported. Sexual History concerns None reported Physical exam in the last year? Yes Medications Is the patient compliant with medications? Yes Does the patient have Stringer Guardian in place? Not applicable Does the patient use complimentary health approaches? No Trauma/Abuse History History of trauma? No Questionnaires PHQ-9 Over the last 2 weeks, how often have you been bothered by any of the following problems? 1. Little interest or pleasure in doing things: several days 2. Feeling down, depressed, or hopeless: several days 3. Trouble falling or staying asleep, or sleeping too much: not at all 4. Feeling tired or having little energy: not at all 5. Poor appetite or overeating: several days 6. Feeling bad about yourself - or that you are a failure or have let yourself or your family down: several days 7. Trouble concentrating on things, such as reading the newspaper or watching television: not at all 8. Moving or speaking so slowly that other people could have noticed. Or the opposite - being so fidgety or restless that you have been moving around a lot more than usual: several days 9. Thoughts that you would be better off or of hurting yourself in some way: not at all Total score: 5 Depression Screening Interpretation: Negative (Mild Symptoms.) 29057 - PHQ-9 Billing: Yes Source: Developed by Drs. Sean Rodriguez, Eloise Moran, Ruddy Daly and colleagues, with an educational doreen from [employer]. Assessment & Plan Assessment & Plan (1) Depression: Code(s): F32.A - Depression, unspecified Qualifiers: Depression Type: unspecified Qualified Code(s): F32.A - Depression, unspecified (2) Anxiety: Code(s): F41.9 - Anxiety disorder, unspecified Plan PT is clear since her mental functioning is not impaired and there ar josé miguel safety concerns at this time, however she will need support with emotional journey and managing of social stress triggered by weigh-loss journey. This provider continue meeting with patient and patient will be provided with strategies for emotional eating, anxiety management, assertiveness, and manage triggers such as dealing with other's negative comments. f/up in 4 weeks. Next angelo: 01/04 @1pm / Telehealth Coding Level of Care Code Established Pt Tele Psytx 45 mins ([id number]) Patient Type Established Diagnoses Depression, unspecified depression type F32.A Depression Type: unspecified Anxiety F41.9 Time Spent (min) 45
== END 2022-12-05 10:00 | disposition home or self-care (01) ==
LOC: HO.HBST 09:32
PROVIDERS: PCP Internal Medicine; Visit Provider Counselor Mental Health
DX: F32.A Depression, unspecified (principal); F41.9 Anxiety disorder, unspecified
CPT/HCPCS: 90834

== ENCOUNTER → 2022-12-05 09:00 | Outpatient (BNVA) | payer MEDICARE, SELFPAY | PROVIDERS: PCP Internal Medicine; Visit Provider Counselor Mental Health ==

== ENCOUNTER → 2022-12-09 09:37 | Outpatient (REF) | payer MEDICARE, SELFPAY ==
--- NOTE | ~2022-12-09 | NM_ITS ---
Myocardial perfusion study Indication: Abnormal EKG to evaluate for myocardial ischemia Technique: The patient was brought in for a Lexiscan perfusion study on 12/09/2022. Patient performed low-level exercise and was injected 0.4 mg of Lexiscan intravenously. Within a minute of injection, 30 mCi of sestamibi was given intravenously. Images were obtained using the SPECT gamma camera interlaced with the gating device. Images were obtained in supine position. Resting perfusion study was performed on 12/13/2022. Patient was administered 30 mCi of sestamibi intravenously at rest. Images were then obtained in supine position. Images obtained with and without CT attenuation. Total DLP 109 mGy-cm. Images were processed with the software and compared side to side in short axis, horizontal long axis and vertical long axis views. Findings: The stress perfusion study showed non attenuated images show normal uptake of radiotracer in all segments of LV myocardium. Attenuation corrected images show mildly reduced uptake in the apex of the LV myocardium.. The gated study shows normal LV systolic function with calculated LVEF of 74%. LV cavity is normal size. The gated study shows normal systolic wall thickening and contraction of segments. Resting study shows no change in perfusion pattern compared to stress perfusion study. Gating at rest reveals normal systolic wall motion with ejection fraction at 73%. The findings are consistent with normal myocardial perfusion. NM/NM cardiolite stress test Impression: 1. Myocardial perfusion imaging study shows normal myocardial perfusion 2. Gated LVEF is 74% 3. Transient ischemic dilatation not present EKG is nondiagnostic for ischemia
--- NOTE | 2022-12-09 09:40 | CA_ITS ---
Acquisition Time: 2022-12-09 09:49:03 Total Exercise Time: 00:02:00 Test Indications: Abnormal ECG, PREOP Medications: Protocol: LEXISCAN Max HR: 105 BPM 63% of Pred: 166 BPM Max BP: 128/066 mmHG Max Work Load: 1.6 METS Pharmaoclgoical stress test with Lexiscan injection while walking slowly on the treadmill without anginal symptoms, without arrhythmias, with normotensive response to injection, with nondiagonstic EKGs. Nuclear images pending. Test reviewed with Dr. Reilly Referred By: Bradford Kearney Overread By: Priscilla Buckner
== END ==
LOC: HO.CARD 09:37
PROVIDERS: PCP Internal Medicine; Visit Provider Physician Assistant Surgical
DX: R94.31 Abnormal electrocardiogram [ECG] [EKG] (principal)
CPT/HCPCS: 78452; 93017; A9500; J0280; J2785

== ENCOUNTER → 2022-12-09 09:40 | Outpatient (BNV) | payer MEDICARE, SELFPAY | PROVIDERS: PCP Internal Medicine; Visit Provider Nurse Practitioner | DX: R94.31 Abnormal electrocardiogram [ECG] [EKG] (principal) | CPT/HCPCS: 78452; 93016; 93018 ==

== ENCOUNTER 2022-12-26 11:00 | Outpatient (AMB) | payer MEDICARE, SELFPAY ==
--- NOTE | 2022-12-26 11:09 | A.OFFWM_ITS ---
Intake Intake Visit Reasons: VIDEO BH F/U Allergies No Known Allergies Allergy (Verified 10/19/22 09:23) PFSH Surgical History Hx of cholecystectomy Hx of exploratory laparotomy Family History Mother Hypertension Arthritis Father Cirrhosis Social History Alcohol intake: current Alcohol intake frequency: does not drink Patient Tobacco Use Status: Never used Tobacco Behavioral Health Assessment Weight Management Therapy Therapy Notes Details Pt presents for a follow up. PT reports been better since our last meeting. States she started the meal plan but is not exercising. INTERVENTIONS: discussed functioning and progress with program expectations. Processed challenges/needs and explores strategies to continue her weight-loss commitment. Provided with community resources such as, local gyms, [employer] activities program ([facility] program near her) and other free web-based resources to access at home. Administered PHQ-9 again. Reminded angelo [facility]oming appointments. RESPONSE: Engaged and active in session. PLAN: Provider gave letter to patient for [facility] membership discount, she agreed to go this week. we will continue meeting on a monthly basis. Presenting Concerns Referral Source P Provider. PT sees LENNY Andrade. Reason for referral Completion of behavioral health assessment as part of process for weight-loss surgery. Precipitating Event Obesity, HTN, Diabetes. Binge Eating Do you frequently eat large amounts of food in short periods of time, not feeling physically hungry? No Do you feel out of control when you eat a large amount of food in a short period of time? No Do you eat large amounts of food rapidly and typically alone? No Night Eating Do you wake up at least once during the night to eat? No If you wake up in the night, do you find that it is necessary to eat something in order to fall back asleep? No Do you have little or no appetite in the morning and feel very hungry in the evening, often overeating between dinner and when you go to bed? No Medications Is the patient compliant with medications? Yes Does the patient have Stringer Guardian in place? Not applicable Does the patient use complimentary health approaches? No Questionnaires PHQ-9 Over the last 2 weeks, how often have you been bothered by any of the following problems? 1. Little interest or pleasure in doing things: not at all 2. Feeling down, depressed, or hopeless: not at all 3. Trouble falling or staying asleep, or sleeping too much: not at all 4. Feeling tired or having little energy: not at all 5. Poor appetite or overeating: not at all 6. Feeling bad about yourself - or that you are a failure or have let yourself or your family down: not at all 7. Trouble concentrating on things, such as reading the newspaper or watching television: not at all 8. Moving or speaking so slowly that other people could have noticed. Or the opposite - being so fidgety or restless that you have been moving around a lot more than usual: not at all 9. Thoughts that you would be better off or of hurting yourself in some way: not at all Total score: 0 Depression Screening Interpretation: Negative Depression Screening Done: Yes 42541 - PHQ-9 Billing: Yes Source: Developed by Drs. Sean Rodriguez, Eloise Moran, Ruddy Daly and colleagues, with an educational doreen from [employer]. Assessment & Plan Assessment & Plan (1) Depression: Code(s): F32.A - Depression, unspecified Qualifiers: Depression Type: unspecified Qualified Code(s): F32.A - Depression, unspecified (2) Anxiety: Code(s): F41.9 - Anxiety disorder, unspecified Plan PT Cleared. . F/up in 5 weeks. Next angelo: 01/30/23 @1pm / Telehealth Telehealth Telehealth Location of provider rendering services: other (Home office. [place], [place].) Location of patient: address on file Patient Identification confirmed using: Name, : Yes Telehealth method: video Patient verbally consented to treatment: Yes Patient verbally consented to billing insurance company: Yes Patient informed of any privacy concerns related to visit: Yes Minutes spent on Phone/Video with Pt.: 60 Coding Level of Care Code Established Pt Tele Psytx >53 mins ([id number]) Patient Type Established Diagnoses Depression, unspecified depression type F32.A Depression Type: unspecified Anxiety F41.9 Time Spent (min) 60
== END 2022-12-26 12:00 ==
LOC: HO.HBST 11:10
PROVIDERS: PCP Internal Medicine; Visit Provider Counselor Mental Health
DX: F32.A Depression, unspecified (principal); F41.9 Anxiety disorder, unspecified
CPT/HCPCS: 90837

== ENCOUNTER → 2022-12-26 11:00 | Outpatient (BNVA) | payer MEDICARE, SELFPAY | PROVIDERS: PCP Internal Medicine; Visit Provider Counselor Mental Health ==

== ENCOUNTER 2023-11-28 12:50 | Outpatient (AMB) | payer MEDICARE, SELFPAY ==
--- NOTE | 2023-11-28 12:55 | MHC.OFFVIS ---
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 Intake Note: New patient with ekg dx RBBB had ekg and stress last year patient states feeling good Mini Shifter Required: No Mini Shifter Services: Mini Shifter Offered & Declined Machine Operator Hop Picker: Machine Operator Hop Picker Present Accompanied by: niece Allergies No Known Allergies Allergy (Verified 10/19/22 09:23) Medication List - Last Reconciled 11/28/23 by Paresh Reilly MD aspirin 81 mg PO DAILY atorvastatin 20 mg PO DAILY cyanocobalamin (vitamin B-12) 250 mcg PO DAILY dulaglutide (Trulicity) 0.75 mg subcut QWEEK fluticasone propionate 50 mcg/actuation 2 sprays intranasal DAILY insulin lispro protamin-lispro 100 unit/mL (75-25) (Humalog Mix 75-25 KwikPen) 50 units subcut BID lisinopril 20 mg PO DAILY loratadine (Allergy Relief (loratadine)) 10 mg PO DAILY paroxetine HCl 40 mg PO DAILY HPI Comments Details: Sharon was referred here for abnormal EKG, right bundle-branch block. His EKG was noted to be abnormal last September. Subsequently she underwent a vasodilating myocardial perfusion imaging which showed no evidence of myocardial ischemia. She has multiple risk factors for obstructive coronary artery disease including hypertension, hyperlipidemia, diabetes, obesity. 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 Whether job she has no cardiac symptoms. Denies any exertional chest pain or shortness of breath. Denies any heart failure symptoms. Denies any lightheadedness, syncope. Denies any prolonged palpitations. Her last LDL was well optimized in the upper 40s. She said diabetes is also well control with hemoglobin A1c of 7%. Blood pressure is well optimized. She takes all her medications regularly. [facility] Surgical History Hx of exploratory laparotomy Hx of cholecystectomy Family History Mother Hypertension Arthritis Father Cirrhosis Social History Alcohol intake: current Alcohol intake frequency: does not drink Patient Tobacco Use Status: Never used Tobacco Review of Systems Const Denies chills, Denies daytime sleepiness, Denies fatigue, Denies fever(s), Denies frequent falls, Denies poor appetite, Denies snoring, Denies stops breathing during sleep, Denies weakness, Denies weight gain and Denies weight loss Eyes Denies loss of vision ENT Denies dizziness and Denies hearing loss Card Denies chest pain, Denies claudication, Denies leg edema, Denies lightheadedness, Denies palpitations, Denies dyspnea, Denies dyspnea on exertion and Denies orthopnea Resp Denies cough, Denies excessive phlegm production, Denies dyspnea, Denies dyspnea on exertion, Denies snoring and Denies wheezing GI Denies abdominal pain, Denies hematochezia, Denies change in bowel habits, Denies nausea and Denies vomiting Denies urinary frequency and Denies dysuria Musc Denies arthralgias, Denies muscle weakness, Denies numbness and Denies other (frequent falls) Skin/Breast Denies nail changes and Denies rash Neuro Denies Abnormal speech present, Denies dizziness, Denies frequent falls, Denies loss of vision, Denies memory loss, Denies numbness and Denies weakness Psych Denies depression and Denies memory loss Endo Denies fatigue and Denies palpitations Christopher/Lymph Reports easy bruising and Reports other (anemia) Aller/Immun Denies wheezing Physical Exam Vital Signs: Last Vital Signs Pulse 63 11/28/23 12:56 BP 130/72 11/28/23 12:56 BMI result Body Mass Index 35.9 Const General: cooperative, comfortable, no acute distress, alert, awake, Physically active and well groomed Nutritional Appearance: obese Orientation/consciousness: patient oriented x3 Limitations: no limitations HEENT Head: Yes normocephalic and Yes atraumatic Neck Neck: Yes trachea midline, Yes supple and Yes no JVD Resp Effort & Inspection: normal respiratory effort Auscultation: clear to auscultation bilaterally Cardio Jugular venous distension: no JVD Palpation: normal PMI Rate: regular rate Rhythm: regular rhythm Heart sounds: S1 normal heart sound present, S2 normal heart sound present, no click, no gallops, no murmurs and no rubs GI Auscultation: normal bowel sounds Skin General skin exam: no rashes or lesions noted Neuro General: patient oriented x3 and no focal motor deficits Speech: No Abnormal speech present Extrem General: Yes no clubbing, cyanosis or edema Psych Appearance: grossly normal Office Procedures EKG Details: EKG shows normal sinus rhythm normal EKG [id number], Complete Assessment & Plan Assessment & Plan (1) Abnormal EKG: Code(s): R94.31 - Abnormal electrocardiogram [ECG] [EKG] Category: Medical Plan: Abnormal EKGs suggestive of right bundle-branch block which is unchanged. No symptoms related to it. She had a myocardial perfusion imaging last year which was within normal limits. No further ischemic workup is indicated as she has no current symptoms. I would suggest an echocardiogram to evaluate LV systolic and diastolic function to evaluate for hypertensive heart disease. This will be scheduled in near future. Currently her risk factors are well optimized. We discussed about continuing all her medications. LDL is currently well optimized for management of diabetes which is coronary artery disease equivalent. Diabetes also well managed. Blood pressure is well optimized. Advised to continue current therapy. Advise however to also increase activity level and participate in regular physical activity. Will follow up in the clinic if need be. Thank you for allowing me to partake in his care Coding Level of Care Code New Pt Level 3 (14751) Diagnoses Abnormal EKG R94.31 CPT Codes EKG - CPT: 91416-[id number], Complete ([id number])
[2023-11-28 12:56] VITALS: BP 130/72; PULSE 63; BMI 35.9
== END 2023-11-28 14:18 | disposition home or self-care (01) ==
PROVIDERS: PCP Internal Medicine; Visit Provider Internal Medicine Cardiovascular Disease
DX: R94.31 Abnormal electrocardiogram [ECG] [EKG] (principal)
CPT/HCPCS: 93010; 99213

== ENCOUNTER → 2023-11-28 12:50 | Outpatient (BNVA) | payer MEDICARE, SELFPAY | PROVIDERS: PCP Internal Medicine; Visit Provider Internal Medicine Cardiovascular Disease | DX: R94.31 Abnormal electrocardiogram [ECG] [EKG] (principal); I10 Essential (primary) hypertension; E78.5 Hyperlipidemia, unspecified; E66.9 Obesity, unspecified; Z68.35 Body mass index [BMI] 35.0-35.9, adult | CPT/HCPCS: 93005; 99212 ==

== ENCOUNTER 2024-08-13 13:03 | Emergency (ER) | payer MEDICARE, SELFPAY ==
[2024-08-13 13:25] VITALS: BP 133/48; PULSE 88; RESP 18; TEMP 36.3; O2SAT 97; BMI 34.4
--- NOTE | 2024-08-13 13:34 | ED.GENADULT ---
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 she reports 8 days ago she noticed a painful lump to the top of her scalp. She reports some redness to the area. Denies any injuries. She also has pain behind her right ear denies any ear pain or drainage from the ear. No other complaints or concerns at this time Related Data Home Medications ?Medication ?Instructions ?Recorded ?Confirmed aspirin 81 mg tablet,delayed 81 mg PO DAILY 08/16/22 11/28/23 release atorvastatin 20 mg tablet 20 mg PO DAILY 08/16/22 11/28/23 dulaglutide 0.75 mg/0.5 mL 0.75 mg subcut QWEEK 08/16/22 11/28/23 subcutaneous pen injector (Trulicity) fluticasone propionate 50 2 spray intranasal DAILY 08/16/22 11/28/23 mcg/actuation nasal spray,suspension lisinopril 20 mg tablet 20 mg PO DAILY 08/16/22 11/28/23 loratadine 10 mg tablet (Allergy 10 mg PO DAILY 08/16/22 11/28/23 Relief (loratadine)) paroxetine HCl 40 mg tablet 40 mg PO DAILY 08/16/22 11/28/23 insulin lispro protamine-lispro 50 unit subcut BID 10/19/22 11/28/23 100 unit/mL (75-25) subcutaneous pen (Humalog Mix 75-25 KwikPen) Previous Rx's ?Medication ?Instructions ?Recorded cyanocobalamin (vitamin B-12) 250 250 mcg PO DAILY #60 tabs 12/05/22 mcg tablet amoxicillin 875 mg-potassium 1 tab PO Q12H #14 tabs 08/13/24 clavulanate 125 mg tablet ibuprofen 600 mg tablet 600 mg PO Q6H PRN pain #20 tabs 08/13/24 Allergies Allergy/AdvReac Type Severity Reaction Status Date / Time No Known Allergies Allergy Verified 08/13/24 13:27 Review of Systems Constitutional: Constitutional: Denies body ache(s), Denies chills, Denies fever(s) and Denies headache(s) Eyes: Eyes: Denies blurry vision ENT: Denies ear discharge, Denies otalgia, Denies headache(s) and Denies sore throat Comments: pain behind right ear Cardiovascular: Cardiovascular: Denies dyspnea Respiratory: Respiratory: Denies cough and Denies dyspnea Gastrointestinal: Gastrointestinal: Denies abdominal pain, Denies nausea and Denies vomiting Integumentary/Breasts: Skin/Breast: Reports erythema, Reports skin pain and Reports skin swelling Neurologic: Denies headache(s) PMFSH Past Medical History Surgical History Hx of exploratory laparotomy Hx of cholecystectomy Family History Family History Mother Hypertension Arthritis Father Cirrhosis Social History Social History Alcohol intake: current Alcohol intake frequency: does not drink Patient Tobacco Use Status: Never used Tobacco Advance Directives: No Advance Directives Information Provided: Yes Physical Exam ED Vital Signs: Vital Signs - 24 hr 08/13/24 13:25 08/13/24 13:49 Temperature 97.3 F 97.3 F Pulse Rate 88 88 Respiratory Rate 18 18 Blood Pressure 133/48 L 133/48 L Pulse Oximetry 97 97 Oxygen Delivery Method Room Air Room Air BMI result Body Mass Index 34.4 Const General: healthy appearing, comfortable, no acute distress, alert and awake Nutritional Appearance: well nourished Orientation/consciousness: patient oriented x3 HENMT Other: there was no significant periauricular edema but the patient is tender in the right mastoid region. No palpable lymphadenopathy. Head: Yes normocephalic and Yes atraumatic Ears: TM normal on the right, TM normal on the left and EAC's normal Eyes Eyelids: Yes eyelids normal Conjunctivae: conjunctivae normal Sclerae: sclerae normal Corneas: corneas normal Pupils: Equal, round and reactive pupils present EOM: EOMs intact bilaterally Neck Neck: Yes full ROM Resp Effort & Inspection: normal respiratory effort, able to speak in complete sentences and not labored Skin Other: there is a small area of folliculitis, erythema with a small central vesicle to the right parietal scalp. This area is tender to palpation. No active drainage. No significant fluctuance. General skin exam: elasticity normal Neuro General: patient oriented x3 Cranial nerves: Yes Equal, round and reactive pupils present and Yes Bilaterally intact EOM present Cognition (Neuro): normal cognition Extrem Other: Moving all extremities well without any obvious deformities Medical Decision Making Medical Decision Making MDM Narrative: 53-year-old female with past medical history as above presents for evaluation of pain to the top of her head and behind her right ear. She has a areas folliculitis that is about a 2 cm area, there was no obvious abscess that would be amenable to incision and drainage. There was no evidence of otitis media or otitis externa, therefore less likely mastoiditis. She may have some reactive lymphadenopathy causing pain behind her right ear. We will treat with Augmentin Differential Diagnosis Differential Diagnoses: The differential diagnosis associated with the presentation includes folliculitis Lymphadenopathy Otitis externa Otitis media Foreign body Discharge Plan Discharge Clinical Impression: Folliculitis Patient Disposition: Home, Self-Care Instructions: Folliculitis (ED) Additional Instructions: take antibiotics twice daily for 1 week apply warm compresses to the painful area. Follow-up with your primary doctor, return for new or worsening symptoms Prescriptions: New ibuprofen 600 mg tablet 600 mg PO Q6H PRN (Reason: pain) Qty: 20 0RF amoxicillin-pot clavulanate 875-125 mg tablet 1 tab PO Q12H Qty: 14 0RF No Action cyanocobalamin (vitamin B-12) 250 mcg tablet 250 mcg PO DAILY Qty: 60 0RF aspirin 81 mg tablet,delayed release (DR/EC) 81 mg PO DAILY lisinopril 20 mg tablet 20 mg PO DAILY atorvastatin 20 mg tablet 20 mg PO DAILY paroxetine HCl 40 mg tablet 40 mg PO DAILY loratadine [Allergy Relief (loratadine)] 10 mg tablet 10 mg PO DAILY fluticasone propionate 50 mcg/actuation spray,suspension 2 spray intranasal DAILY Rx Instructions: administer into each nostril Trulicity 0.75 mg/0.5 mL pen injector 0.75 mg subcut QWEEK insulin lispro protamin-lispro [Humalog Mix 75-25 KwikPen] 100 unit/mL (75-25) insulin pen 50 unit subcut BID Rx Instructions: 40 units in the AM 20 units in the PM Interventions: ED Discharge Assessment Last Done: 08/13/24 13:49 Discharge Date/Time: 08/13/24 13:51 Print Language: Japanese
[2024-08-13 13:49] VITALS: BP 133/48; PULSE 88; RESP 18; TEMP 36.3; O2SAT 97
--- OUTSIDE RECORDS SUMMARY | 2024-08-13 15:42 | XMS_ITS ---
Author Name [facility] Organization Unknown Encounters Encounter Type Encounter Reason Primary Diagnosis Location Date Ambulatory [facility] 12/22/2023 Care Team Organization Name Specialty Phone Email Start Date End Da te [facility] 2024
== END 2024-08-13 13:51 | disposition home or self-care (01) ==
PROVIDERS: Emergency Provider Emergency Medicine Emergency Medical Services; PCP Internal Medicine
DX: L73.9 Follicular disorder, unspecified (principal); R22.0 Localized swelling, mass and lump, head; R51.9 Headache, unspecified; E11.9 Type 2 diabetes mellitus without complications; I10 Essential (primary) hypertension; E78.00 Pure hypercholesterolemia, unspecified; Z79.82 Long term (current) use of aspirin; Z79.02 Long term (current) use of antithrombotics/antiplatelets; Z79.85 Long-term (current) use of injectable non-insulin antidiabetic drugs; Z79.4 Long term (current) use of insulin; Z79.899 Other long term (current) drug therapy
CPT/HCPCS: 99282; 99283

== ENCOUNTER 2024-09-10 12:19 | Outpatient (REF) | payer MEDICARE, SELFPAY ==
--- OUTSIDE RECORDS SUMMARY | 2024-09-10 13:17 | XMS_ITS | Continuity of Care Document ---
Author Organization [facility] [address] [place] [address] Phone [phone] Care Team Providers Care Grocery Clerk Marking Name Role Phone Lis Rachele Care Team Information Mechanical Applications Engineer [phone] Social History Type Date Description Comments Sex Female Sex Unknown Procedures Date Code Description Status 12/29/2022 NSHOWOFF No Show Office Visit Complet ed Medical Devices Description No Information Available Encounters Description No Information Available Assessments Description No Information Available Plan of Treatment No Information Available Functional Status Description No Information Available Mental Status Description No Information Available Referrals Description No Information Available
--- OUTSIDE RECORDS SUMMARY | 2024-09-10 13:17 | XMS_ITS ---
Author Name [facility] Organization Unknown Encounters Encounter Type Encounter Reason Primary Diagnosis Location Date Ambulatory [facility] 12/22/2023 Care Team Organization Name Specialty Phone Email Start Date End Da te [facility] 2024
--- OUTSIDE RECORDS SUMMARY | 2024-09-10 13:17 | XMS_ITS | Clinical Summary ---
Author Organization [facility] Address [address] [place] [address] Phone Care Team Providers Care Hot Plate Plywood Press Offbearer Name Role Phone Rachele Gaspar MD Primary Care Provider [phone] Social History Tobacco Use Types Packs/Day Years Used Date Smoking Tobacco: Never Assessed Comments Unknown Sex and Gender Information Value Date Recorded Sex Assigned at Not on file Legal Sex Female 8:25 AM EST Gender Identity Not on file Sexual Orientation Not on file Plan of Treatment Health Maintenance Due Date Last Done Comments Diabetes: Annual Foot Exam 1978 Diabetes: Annual Retina Eye Exam 1978 DTaP,Tdap,and Td Vaccines (1 - Tdap) 11/04/1987 Hepatitis B Vaccines (1 of 3 - 19+ 3-dose series) 11/04/1987 Pneumococcal Vaccine: 50+ Years (1 of 2 - PCV) 11/04/1987 Pneumococcal Vaccine: Pediatrics (0 to 5 Years) and At-Risk Patients (6 to 64 Years) (1 of 2 - PCV) 11/04/1987 Cervical Cancer Screening: P ap Smear 1989 Zoster Vaccines (1 of 2) 2018 Cholesterol Screening (Lipid Panel) 02/13/2022 Colorectal Cancer Screening: Colonoscopy 02/13/2022 Depression Screening 02/13/2022 HIV Screening 02/13/2022 Hepatitis C Screening 02/13/2022 Medicare Annual Wellness Visit 02/13/2022 Social Influencers of Health Screening 02/13/2022 COVID-19 Vaccine ( - 2023-2 5 season) 2023 Diabetes: Annual Urine Albumin-Creatinine Ratio (uACR) 06/25/2024 Breast Cancer Screening 06/29/2024 06/30/19 23, 05/05/2021, 03/26/2020 Influenza Vaccine (#1) 2024 Diabetes: Blood Sugar Contro l Test (HGBA1C) 12/25/2024 06/25/2024 Diabetes: Annual GFR (Glomerular Filtration Rate) 06/25/2025 06/25/2024 Hypertension/CHF/CAD Annual BMP Blood Test 06/25/2025 06/25/2024 HIB Vaccines Aged Out No longer eligi ble based on patient's age to complete this topic HPV Vaccines Aged Out No longer eligi ble based on patient's age to complete this topic Hepatitis A Vaccines Aged Out No long er eligible based on patient's age to complete this topic IPV Vaccines Aged Out No longer eligi ble based on patient's age to complete this topic MMR Vaccines Aged Out No longer eligi ble based on patient's age to complete this topic Meningococcal ACWY Vaccine Aged Out N o longer eligible based on patient's age to complete this topic Meningococcal B Vaccine Aged Out No l onger eligible based on patient's age to complete this topic RSV Immunization Patients Under 20 months Aged Out No longer eligible b ased on patient's age to complete this topic Varicella Vaccines Aged Out No longer eligible based on patient's age to complete this topic Procedures Procedure Name Priority Date/Time Associated Diagnosis Comments THYROID STIMULATING HORMONE Routine 06/25/2024 7:38 AM EDT 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, uncontrolled(250.42 ) ([facility] V24, [facility] V28) Pure hypercholesterolemi a Essential hypertension, benign HEMOGLOBIN A1C Routine 06/25/2024 7:38 AM EDT 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, uncontrolled(250.42 ) ([facility] V24, [facility] V28) Pure hypercholesterolemi a Essential hypertension, benign COMPREHENSIVE METABOLIC PANEL Routine 06/25/2024 7:38 AM EDT 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, uncontrolled(250.42 ) ([facility] V24, [facility] V28) Pure hypercholesterolemi a Essential hypertension, benign ARVIN SCREENING DIGITAL Routine 06/29/2022 11:45 AM EDT Encounter for screening mammogram for malignant neoplasm of breast from Last 3 Months or Most Recently Relevant to Health Maintenance Results * Thyroid stimulating hormone (06/25/2024 7:38 AM EDT) [facility] TSH 2.62 0.40 - 4.00 mcIU/mL LAB CHEMISTRY METHOD 06/25/2024 10:46 AM EDT [facility] Blood Venous blood specimen / Unknown Venipuncture / Unknown 06/25/2024 7:38 AM EDT 06/25/2024 9:08 AM EDT us Rachele Gaspar MD LAB BLOOD ORDERABLES Final Re sult Performing Organization Address [facility] Co de Phone Number [facility] [address] [place] [address], [place] [phone] * (ABNORMAL) Hemoglobin A1c (06/25/2024 7:38 AM EDT) [facility] Hemoglobin A1C 9.0(H) <6.5 % LAB CHEMISTRY METHOD 06/25/2024 2:08 PM EDT [facility] Mean Bld Glu Estim. 212 mg/dL LAB CHEMISTRY METHOD 06/25/2024 2:08 PM EDT [facility] Blood Venous blood specimen / Unknown Venipuncture / Unknown 06/25/2024 7:38 AM EDT 06/25/2024 9:09 AM EDT us Rachele Gaspar MD LAB BLOOD ORDERABLES Final Re sult [facility] [address] [place] [address], [place] [phone] * (ABNORMAL) Comprehensive metabolic panel (06/25/2024 7:38 AM EDT) [facility] Sodium 139 133 - 145 mmol/L LAB CHEMISTRY METHOD 06/25/2024 10:08 AM [facility] Potassium 4.1 3.5 - 5.5 mmol/L LAB CHEMISTRY METHOD 06/25/2024 10:08 AM [facility] Chloride 104 96 - 110 mmol/L LAB CHEMISTRY METHOD 06/25/2024 10:08 AM [facility] CO2 28 21 - 32 mmol/L LAB CHEMISTRY METHOD 06/25/2024 10:08 AM [facility] Anion Gap 7 3 - 11 LAB CHEMISTRY METHOD 06/25/2024 10:08 AM [facility] Glucose 132(H) 70 - 100 mg/dL LAB CHEMISTRY METHOD 06/25/2024 10:08 AM [facility] BUN 15 5 - 25 mg/dL LAB CHEMISTRY METHOD 06/25/2024 10:08 AM [facility] Creatinine 0.80 0.50 - 1.10 mg/dL LAB CHEMISTRY METHOD 06/25/2024 10:08 AM [facility] eGFR 87 >=60 mL/min/1. 73m2 LAB CHEMISTRY METHOD 06/25/2024 10:08 AM [facility] Comment:Calculation based on the Chronic Kidney Disease Epidemiology Collaboration (CKD-EPI) equation refit without adjustment for race. BUN/Creatinine Ratio 18.8 LAB CHEMISTRY METHOD 06/25/2024 10:08 AM [facility] Calcium 10.1 8.5 - 10.5 mg/dL LAB CHEMISTRY METHOD 06/25/2024 10:08 AM [facility] AST (SGOT) 28 10 - 42 unit/L LAB CHEMISTRY METHOD 06/25/2024 10:08 AM [facility] ALT (SGPT) 41 10 - 60 unit/L LAB CHEMISTRY METHOD 06/25/2024 10:08 AM [facility] Alkaline Phosphatase 65 42 - 121 unit/L LAB CHEMISTRY METHOD 06/25/2024 10:08 AM EDT [facility] Total Protein 7.5 6.0 - 8.0 g/dL LAB CHEMISTRY METHOD 06/25/2024 10:08 AM EDT [facility] Albumin 4.3 3.2 - 5.0 g/dL LAB CHEMISTRY METHOD 06/25/2024 10:08 AM EDT [facility] Total Bilirubin 0.5 0.0 - 1.4 mg/dL LAB CHEMISTRY METHOD 06/25/2024 10:08 AM EDT [facility] Blood Venous blood specimen / Unknown Venipuncture / Unknown 06/25/2024 7:38 AM EDT 06/25/2024 9:08 AM EDT us Rachele Gaspar MD LAB BLOOD ORDERABLES Final Re sult [facility] [address] [place] [address], * ARVIN SCREENING DIGITAL (06/29/2022 11:45 AM EDT) Anatomical Region Laterality Modality Mammography 06/29/2022 9:22 AM EDT Narrative 06/29/2022 11:45 AM EDT [facility] Diagnostic Imaging Department [address] [place] [address] Patient: NIETO LUPILLO CAMPBELL./Age/Sex: 1970 - 51 - F Unit#: [id number] Location/Status: SPDIMAM/REG CLI Mnemonic/Ordering Site: DIGSC/SPMAM Ordering Physician: RACHELE GASPAR MD [facility] Screening Digital - 06/29/22 - 938 EXAM: [facility] Screening Digital EXAM DATE AND TIME: 06/29/2022 9:39 AM HISTORY: Screening. COMPARISON: 05/05/21, 03/25/20 TECHNIQUE: CC and MLO views of both breasts were obtained using full field digital mammography. Bilateral digital breast tomosynthesis was performed in the MLO projection. Computer aided detection with Glam .fr [place] 7.2-H and EatWith 3D 3.1 was employed. TISSUE DENSITY: b. There are scattered areas of fibroglandular density. FINDINGS: No suspicious masses, grouped microcalcifications, or areas of architectural distortion are seen. Skin calcifications are again seen. The vascularity is unremarkable. IMPRESSION: Stable mammographic appearance of the breasts. No evidence of malignancy is seen. A negative mammogram in the presence of a clinically suspicious palpable abnormality does not preclude the possibility of malignancy or alter the indications for biopsy. BI-RADS: Category 2: Benign RECOMMENDATION(S): 1: Routine screening mammogram BILATERAL in 1 year. 78902, [id number] 3342F, 7025F Dictating Physician: WALESKA BENNETT MD Electronically Signed by: WALESKA BENNETT MD Dic Date/Time: 06/29/22 1145 Sign date/Time: 06/29/22 1145 Procedure Note Waleska Bennett MD - 04/14/2023 [facility] Diagnostic Imaging Department [address] [place] [id number] Patient: LUPILLO MENDOZA./Age/Sex: 1970 - 51 - F Unit#: [id number] Location/Status: SPDIMAM/REG CLI Mnemonic/Ordering Site: [facility] Ordering Physician: RACHELE GASPAR MD [facility] Screening Digital - 06/29/22 - 938 EXAM: [facility] Screening Digital EXAM DATE AND TIME: 06/29/2022 9:39 AM HISTORY: Screening. COMPARISON: 05/05/21, 03/25/20 TECHNIQUE: CC and MLO views of both breasts were obtained using fullfield digital mammography. Bilateral digital breast tomosynthesis was performedin the MLO projection. Computer aided detection with Glam .fr [place] 7.2-H andEatWith 3D 3.1 was employed. TISSUE DENSITY: b. There are scattered areas of fibroglandular density. FINDINGS: No suspicious masses, grouped microcalcifications, or areas ofarchitectural distortion are seen. Skin calcifications are again seen. The vascularityis unremarkable. IMPRESSION: Stable mammographic appearance of the breasts. No evidence of malignancyis seen. A negative mammogram in the presence of a clinically suspicious palpable abnormality does not preclude the possibility of malignancy or alter the indications for biopsy. BI-RADS: Category 2: Benign RECOMMENDATION(S): 1: Routine screening mammogram BILATERAL in 1 year. [id number], [id number] 3342F, 7025F Dictating Physician: WALESKA BENNETT MD Electronically Signed by: WALESKA BENNETT MD Dic Date/Time: 06/29/22 1145 Sign date/Time: 06/29/22 1145 us Rachele Gaspar MD IMG BI PROCEDURES Final Resul t from Last 3 Months or Most Recently Relevant to Health Maintenance Insurance [employer] MEDICARE Care Teams Hot Plate Plywood Press Offbearer Relationship Specialty Start Date End Date Rachele Gaspar MD [address] [place] [address] [place] [address] PCP - General Internal Medicine 06/25/24
== END 2024-09-10 12:20 | disposition home or self-care (01) ==
LOC: HO.MAMMO 12:19
PROVIDERS: PCP Internal Medicine; Visit Provider Internal Medicine
DX: Z12.31 Encounter for screening mammogram for malignant neoplasm of breast (principal)
CPT/HCPCS: 77063; 77067

== ENCOUNTER → 2024-09-10 12:30 | Outpatient (BNV) | payer MEDICARE, SELFPAY | PROVIDERS: PCP Internal Medicine; Visit Provider Internal Medicine | DX: Z12.31 Encounter for screening mammogram for malignant neoplasm of breast (principal) | CPT/HCPCS: 77063; 77067 ==